=== PATIENT | male | born 1990 | race Caucasian/White ===

== ENCOUNTER 2021-03-29 20:41 | Emergency (ER) | payer SELFPAY ==
[~2021-03-29] VITALS: Ht 160 cm; Wt 71.0 kg
[2021-03-29 23:35] LABS: BASOPHILS % 0.3 % (0.0-2.0); EOSINOPHILS % 0.2 % (0.0-5.0); HEMATOCRIT. 44.9 % (42.0-52.0); LYMPHOCYTES % 15.1 % (20.0-50.0); MEAN CORPUSCULAR HEMOGLOBIN 32.8 pg (28.0-32.0); MEAN CORPUSCULAR VOLUME 91.9 fL (80.0-94.0); MEAN PLATELET VOLUME 7.9 fl (7.4-10.4); MONOCYTES % 7.7 % (2.0-8.0); NEUTROPHILS % 76.7 % (40.0-76.0); PLATELET 269 x1000/uL (130-400); RED BLOOD CELL COUNT 4.89 mill/uL (4.7-6.1); RED CELL DISTRIBUTION WIDTH 13.4 % (11.6-14.6)
[2021-03-29 23:43] LABS: CHLORIDE 110 mEq/L (98-107)
[2021-03-29 23:48] LABS: ETHANOL BLOOD 233 mg/dL
[2021-03-30 00:07] LABS: *AMPHETAMINES SCREEN URINE NEGATIVE (NEGATIVE); *BARBITURATES SCREEN URINE NEGATIVE (NEGATIVE); *BENZODIAZEPINES SCREEN URINE NEGATIVE (NEGATIVE); *COCAINE SCREEN URINE NEGATIVE (NEGATIVE); CANNABINOID URINE SCREEN NEGATIVE (NEGATIVE); METHADONE URINE SCREEN NEGATIVE (NEGATIVE); OPIATES URINE SCREEN NEGATIVE (NEGATIVE); PHENCYCLIDINE URINE SCREEN NEGATIVE (NEGATIVE)
[2021-03-30 09:47] VITALS: BP 110/70
== END 2021-03-30 09:49 | disposition home or self-care (01) ==
LOC: ER 20:56
DX: S00.81XA Abrasion of other part of head, initial encounter (principal); S00.219A Abrasion of unspecified eyelid and periocular area, initial encounter; R45.851 Suicidal ideations; I49.8 Other specified cardiac arrhythmias; X58.XXXA Exposure to other specified factors, initial encounter; Y93.89 Activity, other specified; Y92.89 Other specified places as the place of occurrence of the external cause; Y99.8 Other external cause status
CPT/HCPCS: 36415; 80053; 80305; 80307; 80320; 80329; 85025; 93005; 99285; G0480

== ENCOUNTER 2025-08-26 13:43 | Emergency (ER) | payer OTHER ==
[~2025-08-26] VITALS: Ht 162.6 cm; Wt 105.0 kg
[2025-08-26 13:46] VITALS: O2SAT 98
[2025-08-26] MEDS ORDERED: DEXTROSE 50% WATER 50ML SYRINGE IV PRN (14:30)
[2025-08-26] MEDS: INSULIN LISPRO 100 UNITS/ML SUBCUT STA (14:36)
[2025-08-26 14:54] VITALS: BP 134/74; PULSE 95; RESP 16; TEMP 36.6; O2SAT 98
== END 2025-08-26 14:55 | disposition home or self-care (01) ==
LOC: ER 13:43
DX: R73.9 Hyperglycemia, unspecified (principal); Z65.3 Problems related to other legal circumstances; Z91.148 Patient's other noncompliance with medication regimen for other reason
CPT/HCPCS: 99283; 82962; 96372; J1815